=== PATIENT | female | born 1975 | race Two or more races ===

== ENCOUNTER 2018-07-18 04:34 | Emergency (ER) | payer SELFPAY ==
[~2018-07-18] VITALS: Ht 154.9 cm; Wt 57.6 kg
[2018-07-18 04:47] VITALS: BP 154/75
[2018-07-18] MEDS: IV NORMAL SALINE 1000ML BAG 1,000 ML IV ONE (05:01)
[2018-07-18] MEDS: METOCLOPRAMIDE HCL 10 MG/2 ML VIAL. IV ONE (05:04)
[2018-07-18 05:08] LABS: BILIRUBIN,URINE NEGATIVE (NEG); CLARITY,URINE CLEAR; COLOR,URINE YELLOW; NITRITE,URINE POSITIVE (NEG); PROTEIN,URINE NEGATIVE (NEG-TRACE)
[2018-07-18 05:14] LABS: CALCIUM 9.1 mg/dL (8.5-10.1); CREATININE 0.5 mg/dL (0.6-1.0); GFR 135.3; POTASSIUM 3.4 mmol/L (3.5-5.1)
[2018-07-18 05:17] LABS: BASO % 0 % (0-3); EOS % 0 % (0-3); HEMATOCRIT 39.1 % (36.0-47.0); HEMOGLOBIN 13.8 g/dL (12.0-15.5); LYMPH # 0.6 x10^3/uL (1.0-4.8); LYMPH % 13 % (24-48); MEAN CORPUSCULAR HEMOGLOBIN 30 pg (25-35); MEAN CORPUSCULAR HGB CONC 35 g/dL (31-37); MEAN CORPUSCULAR VOLUME 86 fL (79-100); MONO # 0.4 x10^3/uL (0.0-1.1); MONO % 8 % (0-9); NEUT # 3.9 x10^3uL (1.8-7.7); NEUT % 79 % (31-73); PLATELET COUNT 180 x10^3/uL (140-400); RED BLOOD COUNT 4.54 x10^6/uL (3.50-5.40); RED CELL DISTRIBUTION WIDTH 12.1 % (11.5-14.5); WHITE BLOOD COUNT 4.9 x10^3/uL (4.0-11.0)
[2018-07-18 05:19] LABS: ALBUMIN 3.6 g/dL (3.4-5.0); ALBUMIN/GLOBULIN RATIO 0.8 (1.0-1.7); TOTAL BILIRUBIN 0.6 mg/dL (0.2-1.0); TOTAL PROTEIN 7.9 g/dL (6.4-8.2)
[2018-07-18 05:19] LABS: SQUAMOUS EPITHELIAL CELL,UR MOD /LPF
[2018-07-18 05:20] LABS: BACTERIA,URINE MANY /HPF (0-FEW)
--- NOTE | 2018-07-18 05:23 | PHYS DOC ---
Past Medical History Past Medical History: Diabetes-Type II, Gallstones Past Surgical History: Alcohol Use: None Drug Use: None Adult General Chief Complaint Chief Complaint: NAUSEA/VOMITING/DIARRHA HPI HPI 43-year-old female presents to the emergency department with 3 days of nausea and vomiting. She states that she developed diffuse abdominal pain worse in the right lower quadrant in the last couple of days as well. She states that she has had 5 episodes of loose stool per day, nonbloody as well. She states that at the very beginning she had a diffuse, gradual onset headache with associated fever of 100.7. States that improved. Denies travel or recent antibiotics. Review of Systems Review of Systems Eyes: Denies change in visual acuity, redness, or eye pain, or photophobia HENT: Denies nasal congestion or sore throat Respiratory: Denies cough or shortness of breath Cardiovascular: Denies cp or dyspnea : Denies dysuria or hematuria Musculoskeletal: Denies back pain or joint pain Integument: Denies rash or skin lesions Neurologic: Denies Focal weakness or sensory changes, denies neck pain or stiffness All other systems were reviewed and found to be within normal limits, except as documented in this note. Family History Family History noncontributory Current Medications Current Medications Current Medications Medications (Trade) Dose Ordered Sig/Reinaldo Start Time Stop Time Status Last Admin Dose Admin Ceftriaxone Sodium 50 ml @ 100 mls/hr 1X ONCE 07/18/18 06:15 07/18/18 06:44 Info (CONTRAST GIVEN -- Rx MONITORING) 1 each PRN DAILY PRN 07/18/18 05:45 07/20/18 05:44 Iohexol (Omnipaque 300 Mg/ml) 75 ml 1X ONCE 07/18/18 05:45 07/18/18 05:46 DC 07/18/18 05:59 75 ML Metoclopramide HCl (Reglan Vial) 10 mg 1X ONCE 07/18/18 05:00 07/18/18 05:01 DC 07/18/18 05:04 10 MG Sodium Chloride 1,000 ml @ 1,000 mls/hr 1X ONCE 07/18/18 05:00 07/18/18 05:59 DC 07/18/18 05:01 1,000 MLS/HR Allergies Allergies Allergies Coded Allergies Type Severity Reaction Last Updated Verified No Known Drug Allergies 07/18/18 No Physical Exam Physical Exam GENERAL: Awake, alert, comfortable appearing, mild distress but nontoxic, somewhat dehydrated appearing HEAD/NECK/EYES: Normocephalic, Neck supple, PERRL ENT Airway patent, mucous membranes dry RESP: Nontachypneic, no respiratory distress, normal breath sounds bilaterally CV: Cardiac without appreciable murmur, less than 2 second cap refill ABD/GI: Soft, mild diffuse tenderness, right lower quadrant tenderness more prominent BACK: Inspection NL EXT: Neurovascularly intact, no deformities SKIN: Warm, dry NEURO: Oriented X3, normal speech, no motor deficits, no sensory deficits, CN II - XII intact PSYCH: Cooperative, appropriate affect Current Patient Data Vital Signs Vital Signs Date Time Temp Pulse Resp B/P (MAP) Pulse Ox O2 Delivery O2 Flow Rate FiO2 07/18/18 04:47 99.9 106 20 154/75 (101) 97 Room Air 99.9 Lab Values Laboratory Tests Test 07/18/18 04:45 07/18/18 04:53 07/18/18 04:56 Urine Collection Type Unknown Urine Color Yellow Urine Clarity Clear Urine pH 6.0 Urine Specific [place] >=1.030 Urine Protein Negative mg/dL (NEG-TRACE) Urine Glucose (UA) >=1000 mg/dL (NEG) Urine Ketones (Stick) >=80 mg/dL (NEG) Urine Blood Trace (NEG) Urine Nitrite Positive (NEG) Urine Bilirubin Negative (NEG) Urine Urobilinogen Dipstick 1.0 mg/dL (0.2 mg/dL) Urine Leukocyte Esterase Negative (NEG) Urine RBC 3-5 /HPF (0-2) Urine WBC 1-4 /HPF (0-4) Urine Squamous Epithelial Cells Mod /LPF Urine Bacteria Many /HPF (0-FEW) White Blood Count 4.9 x10^3/uL (4.0-11.0) Red Blood Count 4.54 x10^6/uL (3.50-5.40) Hemoglobin 13.8 g/dL (12.0-15.5) Hematocrit 39.1 % (36.0-47.0) Mean Corpuscular Volume 86 fL (79-100) Mean Corpuscular Hemoglobin 30 pg (25-35) Mean Corpuscular Hemoglobin Concent 35 g/dL (31-37) Red Cell Distribution Width 12.1 % (11.5-14.5) Platelet Count 180 x10^3/uL (140-400) Neutrophils (%) (Auto) 79 % (31-73) H Lymphocytes (%) (Auto) 13 % (24-48) L Monocytes (%) (Auto) 8 % (0-9) Eosinophils (%) (Auto) 0 % (0-3) Basophils (%) (Auto) 0 % (0-3) Neutrophils # (Auto) 3.9 x10^3uL (1.8-7.7) Lymphocytes # (Auto) 0.6 x10^3/uL (1.0-4.8) L Monocytes # (Auto) 0.4 x10^3/uL (0.0-1.1) Eosinophils # (Auto) 0.0 x10^3/uL (0.0-0.7) Basophils # (Auto) 0.0 x10^3/uL (0.0-0.2) Sodium Level 137 mmol/L (136-145) Potassium Level 3.4 mmol/L (3.5-5.1) L Chloride Level 99 mmol/L (98-107) Carbon Dioxide Level 25 mmol/L (21-32) Anion Gap 13 (6-14) Blood Urea Nitrogen 8 mg/dL (7-20) Creatinine 0.5 mg/dL (0.6-1.0) L Estimated GFR (Cockcroft-Gault) 135.3 BUN/Creatinine Ratio 16 (6-20) Glucose Level 371 mg/dL (70-99) H Calcium Level 9.1 mg/dL (8.5-10.1) Total Bilirubin 0.6 mg/dL (0.2-1.0) Aspartate Amino Transferase (AST) 43 U/L (15-37) H Alanine Aminotransferase (ALT) 56 U/L (14-59) Alkaline Phosphatase 138 U/L (46-116) H Total Protein 7.9 g/dL (6.4-8.2) Albumin 3.6 g/dL (3.4-5.0) Albumin/Globulin Ratio 0.8 (1.0-1.7) L Lipase 157 U/L (73-393) POC Urine HCG, Qualitative Hcg negative (Negative) Laboratory Tests 07/18/18 04:53 Laboratory Tests 07/18/18 04:53 EKG EKG [] Radiology/Procedures Radiology/Procedures [] Impressions: PROCEDURE: CT ABD PELV W/ IV CONTRST ONLY INDICATION: ABD PAIN WITH NAUSEA, VOMITING.
OMNI 300 75ML, NO PRIORS COMPARISON: None. TECHNIQUE: Axial CT images obtained through the abdomen and pelvis with contrast. One or more of the following individualized dose reduction techniques were utilized for this examination: 1. Automated exposure control; 2. Adjustment of the mA and/or kV according to patient size; 3. Use of iterative reconstruction technique. FINDINGS: Abdominal aorta is not aneurysmal. Liver appears mildly low attenuation. Postcholecystectomy changes. Small fluid attenuation structure adjacent to the surgical clips measuring approximately 20 x 10 mm. No peripancreatic fluid collection. Spleen unremarkable. No left-sided hydronephrosis. Urinary bladder is partially distended. No right-sided hydronephrosis. Mild prominence of the wall of the distal sigmoid colon and rectum but not very distended. Appendix measures up to about 6 mm without definite adjacent inflammation at this time. No dilated loops of bowel to suggest obstruction. There is some indentation of the ventral abdominal wall subcutaneous fat with adjacent edema. Could be postoperative in nature if the patient has a history of surgery. IMPRESSION: 1. No dilated loops of bowel to suggest obstruction. 2. The appendix is near the upper limits of normal without definite adjacent inflammatory changes at this time. 3. Subcutaneous edema to the fat is seen bilaterally at the anterior pelvic wall. Would correlate for possible causes such as history of surgery to the region. If no history of surgery to the region then this could be posttraumatic or secondary to causes such as cellulitis if the patient has appropriate symptoms. 4. Small fluid density structure is seen in the right upper quadrant adjacent to the surgical clips. Could be secondary to a mildly distended cystic duct stump, tiny fluid collection or cystic lesion of liver. Course & Med Decision Making Course & Med Decision Making Pertinent Labs and Imaging studies reviewed. (See chart for details) Differential diagnosis includes but not limited to: Acute appendicitis, gastroenteritis, diverticulitis, colitis, viral syndrome, pancreatitis, gastritis, duodenitis, bowel obstruction, serious bacterial illness, pyelonephritis, urinary tract infection, dehydration, DKA 5:[address] Sanchez pending CT results Clare Disclaimer Clare Disclaimer This electronic medical record was generated, in whole or in part, using a voice recognition dictation system. Departure Departure Impression: Primary Impression: Right lower quadrant abdominal pain Additional Impressions: Nausea vomiting and diarrhea UTI (urinary tract infection) Disposition: 01 HOME, SELF-CARE Condition: STABLE Referrals: UNKNOWN PCP NAME (PCP) Patient Instructions: Abdominal Pain, Diarrhea, Nausea and Vomiting, Urinary Tract Infection Additional Instructions: Take medication as directed. Return to the emergency department with any new or concerning symptoms Scripts Ondansetron Hcl (ZOFRAN) 4 Mg Tablet 1 TAB PO Q8HRS PRN for NAUSEA, #20 TAB Prov: RALF ALAN DO 07/18/18 Levofloxacin (LEVAQUIN) 500 Mg Tablet 1 TAB PO DAILY for urinary tract infection, #7 TAB Prov: RALF ALAN DO 07/18/18 Problem Qualifiers Additional Impressions: UTI (urinary tract infection) Urinary tract infection type: acute cystitis Hematuria presence: without hematuria Qualified Codes: N30.00 - Acute cystitis without hematuria EDUARD PATEL DO Jul 18, 2018 05:23 RALF ALAN DO Jul 18, 2018 06:42
[2018-07-18] MEDS ORDERED: CONTRAST GIVEN. MC PRN (05:45)
[2018-07-18] MEDS: IOHEXOL 300 MG/ML 100ML VIAL. IV ONE (05:59)
--- NOTE | 2018-07-18 06:33 | RAD ---
INDICATION: ABD PAIN WITH NAUSEA, VOMITING.
OMNI 300 75ML, NO PRIORS COMPARISON: None. TECHNIQUE: Axial CT images obtained through the abdomen and pelvis with contrast. One or more of the following individualized dose reduction techniques were utilized for this examination: 1. Automated exposure control; 2. Adjustment of the mA and/or kV according to patient size; 3. Use of iterative reconstruction technique. FINDINGS: Abdominal aorta is not aneurysmal. Liver appears mildly low attenuation. Postcholecystectomy changes. Small fluid attenuation structure adjacent to the surgical clips measuring approximately 20 x 10 mm. No peripancreatic fluid collection. Spleen unremarkable. No left-sided hydronephrosis. Urinary bladder is partially distended. No right-sided hydronephrosis. Mild prominence of the wall of the distal sigmoid colon and rectum but not very distended. Appendix measures up to about 6 mm without definite adjacent inflammation at this time. No dilated loops of bowel to suggest obstruction. There is some indentation of the ventral abdominal wall subcutaneous fat with adjacent edema. Could be postoperative in nature if the patient has a history of surgery. IMPRESSION: 1. No dilated loops of bowel to suggest obstruction. 2. The appendix is near the upper limits of normal without definite adjacent inflammatory changes at this time. 3. Subcutaneous edema to the fat is seen bilaterally at the anterior pelvic wall. Would correlate for possible causes such as history of surgery to the region. If no history of surgery to the region then this could be posttraumatic or secondary to causes such as cellulitis if the patient has appropriate symptoms. 4. Small fluid density structure is seen in the right upper quadrant adjacent to the surgical clips. Could be secondary to a mildly distended cystic duct stump, tiny fluid collection or cystic lesion of liver. Electronically signed by: Rigo Duarte MD (07/18/2018 6:30 AM) [facility]
[2018-07-18] MEDS ORDERED: ONDA4TAB7 PO (06:41)
[2018-07-18] MEDS ORDERED: LEVO500T59 PO (06:41)
== END 2018-07-18 07:05 | disposition home or self-care (01) ==
LOC: ER 04:34
DX: N39.0 Urinary tract infection, site not specified (principal); R19.7 Diarrhea, unspecified; E11.9 Type 2 diabetes mellitus without complications; Z98.890 Other specified postprocedural states
CPT/HCPCS: 36415; 74177; 80053; 81001; 81025; 83690; 85025; 87086; 96361; 96365; 96375; 99285; J0690; J2765; J7030; Q9967